=== PATIENT | female | born 1945 | race African-American/Black ===

== ENCOUNTER → 2016-11-06 | Outpatient (CLI) | payer OTHER ==
[2016-07-16 10:30] VITALS: BP 125/61
[~2016-11-06] MED LIST: ACET325T9 PO; CYAN10005 PO; CYCL10TA2 PO; FLUT9.9S NS; FOLI1TAB16 PO; FURO20TA3 PO; LISI1TAB3 PO; NAPR250T2 PO; POTA10CA PO
--- NOTE | 2016-11-06 15:02 | RAD ---
Bilateral lower extremity venous ultrasound, 11/06/2016: History: Bilateral leg pain and swelling Duplex evaluation of the deep veins in the lower extremities was performed including grayscale, color-flow and spectral Doppler analysis. The study was compromised by the large size of the patient's legs. The femoral and popliteal veins demonstrate normal compressibility and normal responses to distal augmentation maneuvers. Color imaging of those vessels shows no evidence of intraluminal clot. Evaluation of the calves veins was limited. No calf vein DVT was identified. IMPRESSION: Limited exam demonstrating no evidence of deep vein thrombosis in either lower extremity.
== END | disposition home or self-care (01) ==
LOC: US 13:29
PROVIDERS: ATTEND Internal Medicine
DX: M79.89 Other specified soft tissue disorders (principal); R68.89 Other general symptoms and signs
CPT/HCPCS: 93970

== ENCOUNTER → 2017-05-01 | Outpatient (CLI) | payer OTHER ==
[2016-07-16 10:30] VITALS: BP 125/61
[~2017-05-01] MED LIST changes: -POTA10CA PO; +POTASSIUM CHLO10 MEQ PO
--- NOTE | 2017-05-01 09:09 | RAD ---
DATE: 05/01/2017 EXAM: DIGITAL SCREEN BILAT W/CAD HISTORY: Routine screening COMPARISON: 03/06/2016 This study was interpreted with the benefit of Computerized Aided Detection (CAD). The breast parenchyma is primarily fatty replaced. Breast parenchyma level density A. FINDINGS: No new or enlarging breast densities are seen. Several benign type calcifications are again noted. No suspicious microcalcifications have developed. IMPRESSION: Stable mammograms without evidence of malignancy. BI-RADS CATEGORY: 2 BENIGN FINDING(S) RECOMMENDED FOLLOW-UP: 12M 12 MONTH FOLLOW-UP PQRS compliance statement: Patient information was entered into a reminder system with a target due date for the next mammogram. Mammography is a sensitive method for finding small breast cancers, but it does not detect them all and is not a substitute for careful clinical examination. A negative mammogram does not negate a clinically suspicious finding and should not result in delay in biopsying a clinically suspicious abnormality. "Our facility is accredited by the [employer] Mammography [employer]."
== END | disposition home or self-care (01) ==
LOC: MAMMO 08:39
PROVIDERS: ATTEND Internal Medicine
DX: Z12.31 Encounter for screening mammogram for malignant neoplasm of breast (principal)
CPT/HCPCS: G0202; 77067

== ENCOUNTER → 2017-12-15 | Outpatient (CLI) | payer OTHER | END | disposition home or self-care (01) | LOC: KCIC DEXA 08:35 | DX: Z13.820 Encounter for screening for osteoporosis (principal); M85.80 Other specified disorders of bone density and structure, unspecified site; Z78.0 Asymptomatic menopausal state | CPT/HCPCS: 77080 ==

== ENCOUNTER 2018-03-06 08:23 | Emergency (ER) | payer OTHER ==
[2018-03-06 09:51] LABS: ADD MAN DIFF? NO
[2018-03-06 09:53] LABS: BASO % 0 % (0-3); EOS # 0.1 x10^3/uL (0.0-0.7); EOS % 3 % (0-3); HEMATOCRIT 29.5 % (36.0-47.0); LYMPH # 1.1 x10^3/uL (1.0-4.8); LYMPH % 19 % (24-48); MEAN CORPUSCULAR HEMOGLOBIN 30 pg (25-35); MEAN CORPUSCULAR HGB CONC 34 g/dL (31-37); MEAN CORPUSCULAR VOLUME 89 fL (79-100); MONO # 0.6 x10^3/uL (0.0-1.1); MONO % 11 % (0-9); NEUT % 68 % (31-73); PLATELET COUNT 203 x10^3/uL (140-400); RED CELL DISTRIBUTION WIDTH 14.6 % (11.5-14.5); WHITE BLOOD COUNT 5.9 x10^3/uL (4.0-11.0)
[2018-03-06 10:00] LABS: ANION GAP 6 (6-14); BLOOD UREA NITROGEN 33 mg/dL (7-20); BUN/CREATININE RATIO 24 (6-20); CALCIUM 9.4 mg/dL (8.5-10.1); CARBON DIOXIDE 26 mmol/L (21-32); CHLORIDE 108 mmol/L (98-107); CREATININE 1.4 mg/dL (0.6-1.0); GFR 44.6; GLUCOSE 98 mg/dL (70-99); POTASSIUM 4.7 mmol/L (3.5-5.1); SODIUM 140 mmol/L (136-145)
[2018-03-06 10:06] LABS: ALBUMIN 3.2 g/dL (3.4-5.0); ALBUMIN/GLOBULIN RATIO 0.8 (1.0-1.7); ALK PHOS 88 U/L (46-116); ALT (SGPT) 24 U/L (14-59); AST (SGOT) 25 U/L (15-37); TOTAL BILIRUBIN 0.4 mg/dL (0.2-1.0); TOTAL PROTEIN 7.4 g/dL (6.4-8.2)
[2018-03-06 10:12] LABS: NT-PRO BNP 53 pg/mL (0-124)
[2018-03-06 11:57] LABS: BILIRUBIN,URINE NEGATIVE (NEG); CLARITY,URINE CLEAR; COLOR,URINE YELLOW; GLUCOSE,URINE NEGATIVE (NEG); NITRITE,URINE NEGATIVE (NEG); PROTEIN,URINE NEGATIVE (NEG-TRACE); UROBILINOGEN,URINE 0.2 mg/dL (0.2 mg/dL)
[2018-03-06 12:12] LABS: BACTERIA,URINE FEW /HPF (0-FEW); HYALINE CASTS, URINE MODERATE /HPF; RBC,URINE 0 /HPF (0-2); SQUAMOUS EPITHELIAL CELL,UR MOD /LPF; WBC,URINE 0 /HPF (0-4)
== END 2018-03-06 12:52 | disposition home or self-care (01) ==
LOC: ER 12:52
DX: M71.22 Synovial cyst of popliteal space [Baker], left knee (principal); R60.0 Localized edema; I62.9 Nontraumatic intracranial hemorrhage, unspecified; E66.9 Obesity, unspecified; I10 Essential (primary) hypertension; Z90.710 Acquired absence of both cervix and uterus; Z88.0 Allergy status to penicillin; Z68.42 Body mass index [BMI] 45.0-49.9, adult
CPT/HCPCS: 36415; 71045; 80053; 81001; 83880; 85025; 93005; 93970; 99285-25

== ENCOUNTER → 2018-06-02 | Day surgery (SDC) | payer OTHER ==
[~2018-06-02] MED LIST changes: +IV RINGERS,LACTATED 1000ML 1,000 ML IV SCH; +LIDOCAINE 1% PF 2 ML VIAL. ID PRN; +LIDOCAINE 2% PF Vial for OR 5 ML VIAL. ONE; +MORPHINE SULFATE 2 MG/ML VIAL. IV PRN; -NAPR250T2 PO; +NAPR250T6 PO; +ONDANSETRON PF 4 MG/2 ML VIAL. IV PRN; +POTA10TA12 PO; -POTASSIUM CHLO10 MEQ PO; +PROCHLORPERAZINE 10 MG/2 ML VIAL. IV PRN; +PROPOFOL 40 ML IV ONE; +fentaNYL PF VIAL 100 MCG/2 ML VIAL IV PRN
--- NOTE | 2018-06-02 12:58 | PDOC1 ---
History and Physical Date of Admission Date of Admission DATE: 06/02/18 TIME: 12:53 Source Source: Chart review, Patient History of Present Illness History of Present Illness 73 y/o female with MARILU. No symptoms or overt bleeding. Last colon 2009 w/ hyperplastic polyp. EGD 2011 as well with negative biopsies for H.pylori though had . Past Medical History Cardiovascular: HTN Heme/Onc: B12 deficiency Musculoskeletal: Osteoarthritis Past Surgical History Past Surgical History: Hysterectomy Family History Family History: Cancer Social History Smoke: No ALCOHOL: none Drugs: None Current Medications Current Medications Current Medications Ondansetron HCl (Zofran) 4 mg PRN Q6HRS PRN IV NAUSEA/VOMITING; Start 06/02/18 at 07:00; Stop 06/03/18 at 06:59 Fentanyl Citrate (Fentanyl 2ml Vial) 25 mcg PRN Q5MIN PRN IV MILD PAIN; Start 06/02/18 at 07:00; Stop 06/03/18 at 06:59 Fentanyl Citrate (Fentanyl 2ml Vial) 50 mcg PRN Q5MIN PRN IV MODERATE TO SEVERE PAIN; Start 06/02/18 at 07:00; Stop 06/03/18 at 06:59 Morphine Sulfate (Morphine Sulfate) 1 mg PRN Q10MIN PRN IV SEVERE PAIN; Start 06/02/18 at 07:00; Stop 06/03/18 at 06:59 Ringer's Solution 1,000 ml @ 30 mls/hr Q24H IV Last administered on 06/02/18at 07:00; Start 06/02/18 at 07:00; Stop 06/02/18 at 18:59 Lidocaine HCl (Xylocaine-Mpf 1% Vial) 2 ml PRN 1X PRN ID IV START; Start at 07:00; Stop 06/03/18 at 06:59 Prochlorperazine Edisylate (Compazine) 5 mg PACU PRN PRN IV NAUSEA, MRX1; Start 06/02/18 at 07:00; Stop 06/03/18 at 06:59 Propofol 40 ml @ As Directed STK-MED ONCE IV ; Start 06/02/18 at 12:40; Stop at 12:41; Status DC Lidocaine HCl (Lidocaine Pf 2% Vial) 5 ml STK-MED ONCE .ROUTE ; Start 06/02/18 at 12:40; Stop 06/02/18 at 12:41; Status DC Active Scripts Active Naproxen 250 Mg Tablet 250 Mg PO BID PRN Flonase Allergy Relief (Fluticasone Propionate) 9.9 Ml Center Line.susp 2 Sprays NS DAILY Cyclobenzaprine Hcl 10 Mg Tablet 10 Mg PO TID PRN Reported Tylenol (Acetaminophen) 325 Mg Tablet 1 Tab PO PRN Q4HRS Folic Acid 1 Mg Tablet 1 Tab PO DAILY Vitamin B-12 (Cyanocobalamin (Vitamin B-12)) 1,000 Mcg Tablet 1 Tab PO DAILY Potassium Chloride 10 Meq Capsule.er 1 Cap PO DAILY Furosemide 20 Mg Tablet 1 Tab PO DAILY Lisinopril-Hctz 10-12.5 Mg Tab (Lisinopril/Hydrochlorothiazide) 1 Each Tablet 1 Tab PO DAILY Allergies Allergies: Coded Allergies: Penicillins (Verified Allergy, Intermediate, Itching, 06/02/18) ROS Review of System Otherwise negative. Physical Exam General: Alert, Oriented X3, Cooperative, No acute distress Lungs: Clear to auscultation Heart: S1S2, RRR, no gallops, no murmurs Abdomen: Normal bowel sounds, Soft, No tenderness, No hepatosplenomegaly, No masses Rectal Exam: deferred (to procedure) Skin: No significant lesion Neuro: Normal speech, Strength at 5/5 X4 ext, Normal tone, Sensation intact, Cranial nerves 3-12 NL, Reflexes 2+ Psych/Mental Status: Mental status NL, Mood NL Vitals Vitals Vital Signs Date Time Temp Pulse Resp B/P (MAP) Pulse Ox O2 Delivery O2 Flow Rate FiO2 06/02/18 12:36 98.8 85 22 98 98.8 VTE Prophylaxis Ordered VTE Prophylaxis Devices: No VTE Pharmacological Prophylaxi: No Assessment/Plan Assessment/Plan IMP: Iron deficiency anemia. PLAN: EGD/colonoscopy. SUMAYA BELL MD Jun 02, 2018 12:58
--- NOTE | 2018-06-02 13:27 | PDOC4 ---
PROCEDURE Procedure EGD/colonoscopy Indications: MARILU Meds: per anesthesia Findings: E--Irregular z-line at 40cm. G--Scar and pancreatic rest, pre-pyloric area. Prior biopsies negative for H.pylori, so not repeated. D--Normal to second portion. Biopsies taken. JERZY--Normal --'Scope advanced to cecum. Prep good. Mucosa normal. 3mm polyp near appendiceal orifice, biopsied off. Small internal hemorrhoids. Occasional diverticulum, sigmoid. Otherwise normal. Shital.well. IMP: Gastric scar and pancreatic rest. Diverticulosis Small polyp Hemorrhoids. No overt cause for the anemia noted. REC: Await biopsies. F/u my office 2 weeks. SUMAYA BELL MD Jun 02, 2018 13:27
[2018-06-02 13:55] VITALS: BP 137/65
--- NOTE | 2018-06-04 10:53 | PATHOLOGY ---
[facility] Accession Number: [id number] . 01 Material submitted: . PART A: DUODENUM BIOPSY PART B: CECUM POLYP . 01 Clinical history: . Anemia . 02 Diagnosis: A. Duodenal biopsies: - No significant pathologic abnormalities. . B. Colon biopsies, cecal polyp: - Hyperplastic polyp showing mild acute and chronic inflammation and fibrosis of lamina propria, and presence of few mucosal-associated lymphoid aggregates. LBQ/06/03/2018 . 02 Comment: Sections of the duodenal biopsies, where best oriented, show no sprue-like changes or significant inflammatory changes. Sections of the cecal biopsies reveal a hyperplastic polyp showing mild acute and chronic inflammation and fibrosis of lamina propria. There are also a few mucosal-associated lymphoid aggregates. There are no adenomatous changes or evidence of malignancy. (JPM/db; 06/03/18) . 02 Electronically signed: . Harry Sharma MD, Pathologist NPI- [id number] . 01 Gross description: . A. Received in formalin labeled "Aury Stallworth, duodenum biopsy," are 3 segments of phillips soft tissue measuring 1.2 x 0.6 x 0.3 cm in aggregate dimensions and ranging from 0.4 to 0.5 cm in maximum dimension. The specimen is submitted entirely in cassette A1. . B. Received in formalin labeled "Basim, Aury, cecum polyp," is a single segment of phillips soft tissue measuring 0.5 cm in maximum dimension. The specimen is entirely submitted in cassette B1. (TSD; 06/02/2018) TOB/TOB . 02 Microscopic: . . . 02 Pathologist provided ICD-10: K63.5, K52.9 . 02 CPT . 174261, [id number] Performed at: [address] [place] [address] [address], [place], [place] [id number] MD Kwadwo Smith MD Phone: [phone] Performed at: [address] [id number] MD Harry Sharma MD Phone: [phone]
== END | disposition home or self-care (01) ==
LOC: ENDOS 12:20
PROVIDERS: ATTEND Internal Medicine Gastroenterology
DX: K63.5 Polyp of colon (principal); K57.30 Diverticulosis of large intestine without perforation or abscess without bleeding; K64.0 First degree hemorrhoids; K31.89 Other diseases of stomach and duodenum; K22.8 Other specified diseases of esophagus; D50.9 Iron deficiency anemia, unspecified; I10 Essential (primary) hypertension; E66.9 Obesity, unspecified; K21.9 Gastro-esophageal reflux disease without esophagitis; E53.8 Deficiency of other specified B group vitamins; M19.90 Unspecified osteoarthritis, unspecified site; Z90.710 Acquired absence of both cervix and uterus; Z79.899 Other long term (current) drug therapy; Z88.0 Allergy status to penicillin; Z86.010 Personal history of colon polyps; Z90.79 Acquired absence of other genital organ(s); Z90.721 Acquired absence of ovaries, unilateral
CPT/HCPCS: 43239; 45380; J2001; J2704; 88305

== ENCOUNTER → 2018-07-07 | Outpatient (CLI) | payer OTHER ==
[2018-06-02 13:55] VITALS: BP 137/65
[~2018-07-07] MED LIST changes: -IV RINGERS,LACTATED 1000ML 1,000 ML IV SCH; -LIDOCAINE 1% PF 2 ML VIAL. ID PRN; -LIDOCAINE 2% PF Vial for OR 5 ML VIAL. ONE; -MORPHINE SULFATE 2 MG/ML VIAL. IV PRN; -ONDANSETRON PF 4 MG/2 ML VIAL. IV PRN; -PROCHLORPERAZINE 10 MG/2 ML VIAL. IV PRN; -PROPOFOL 40 ML IV ONE; -fentaNYL PF VIAL 100 MCG/2 ML VIAL IV PRN
--- NOTE | 2018-07-07 09:21 | RAD ---
EXAM: 3 views left knee DATE: 07/07/2018 12:00 AM INDICATION: LEFT KNEE PAIN X 1 MONTH AFTER KNEE POPPED COMPARISON: 07/07/2018 FINDINGS: Severe medial compartment joint space effacement with tricompartmental osteophytes. No knee joint effusion. Patellar enthesopathy. No evidence of acute fracture or dislocation. No suspicious lytic or blastic lesion is identified. IMPRESSION: 1. Severe left knee joint osteoarthritis with medial compartment joint space effacement. Electronically signed by: James Martínez MD (07/07/2018 9:18 AM) [id number]
--- NOTE | 2018-07-07 15:04 | RAD ---
DATE: July 07, 2018 EXAM: MAMMO RONNY SCREENING BILATERAL HISTORY: Screening study. COMPARISON: 2015 and 2017 This study was interpreted with the benefit of Computerized Aided Detection (CAD). FINDINGS: Breast Density: FATTY The breast parenchyma is primarily fatty replaced. Breast parenchyma level density A.. There are no dominant suspicious masses, suspicious microcalcifications or evidence of architectural distortion. IMPRESSION: No mammographic indicators for malignancy. BI-RADS CATEGORY: 1 NEGATIVE RECOMMENDED FOLLOW-UP: 12M 12 MONTH FOLLOW-UP PQRS compliance statement: Patient information was entered into a reminder system with a target due date July 08, 2019 for the next mammogram. Mammography is a sensitive method for finding small breast cancers, but it does not detect them all and is not a substitute for careful clinical examination. A negative mammogram does not negate a clinically suspicious finding and should not result in delay in biopsying a clinically suspicious abnormality. "Our facility is accredited by the [employer] Mammography Program." The patient's breast density may affect the ability of mammography to detect breast cancer. There are 4 categories of breast density, A, B, C and D. Breast density A means that most of the breast tissue is replaced with adipose tissue and therefore is not dense. Breast density B means that the breast tissue is mildly dense and scattered. Breast density C means that the breast tissue is heterogeneously dense. Breast density D means that the breast tissue is very dense. Breast densities especially C and D may decrease the sensitivity of mammography to detect breast cancer. Therefore, the patient may benefit from 3-D breast mammography (3D breast tomography) as a part of their screening mammogram. Insurance may or may not pay for this additional imaging. The patient's breast density based on today's mammogram is category A.
== END | disposition home or self-care (01) ==
LOC: MAMMO 08:25
DX: Z12.31 Encounter for screening mammogram for malignant neoplasm of breast (principal); M17.12 Unilateral primary osteoarthritis, left knee; M25.762 Osteophyte, left knee; I10 Essential (primary) hypertension; K21.9 Gastro-esophageal reflux disease without esophagitis; Z90.721 Acquired absence of ovaries, unilateral; Z90.710 Acquired absence of both cervix and uterus; Z86.2 Personal history of diseases of the blood and blood-forming organs and certain disorders involving the immune mechanism; Z86.010 Personal history of colon polyps; Z88.0 Allergy status to penicillin; Z79.899 Other long term (current) drug therapy
CPT/HCPCS: 73562; 77063; 77067

== ENCOUNTER → 2019-07-28 | Outpatient (CLI) | payer OTHER ==
[2018-06-02 13:55] VITALS: BP 137/65
[~2019-07-28] MED LIST changes: +CYAN-25 PO; -CYAN10005 PO; +LISI1TAB23 PO; -LISI1TAB3 PO
--- NOTE | 2019-07-28 13:45 | RAD ---
DATE: 07/28/2019 EXAM: MAMMO RONNY SCREENING BILATERAL HISTORY: Asymptomatic screening mammogram COMPARISON: 07/07/2018, 05/01/2017, 03/06/2016 This study was interpreted with the benefit of Computerized Aided Detection (CAD). Breast Density: FATTY The breast parenchyma is primarily fatty replaced. Breast parenchyma level density A. FINDINGS: Bilateral CC and MLO views of the breasts were performed. Bilateral breast tomosynthesis was performed in CC and MLO projections. Right breast: There is a 5-6 mm focal asymmetry in the upper outer right breast at middle depth, approximately 8 cm from the nipple which may be on the most remote examination, however new from prior examinations. Recommend further evaluation with spot compression CC and MLO view as well as possible ultrasound. Left breast: There are no suspicious microcalcifications, masses or areas of architectural distortion. Left breast findings are stable from prior mammogram. IMPRESSION: 1. Incomplete right mammogram. Additional views are recommended. 2. Negative left mammogram.. BI-RADS CATEGORY: 0 INCOMPLETE: NEEDS ADDITIONAL IMAGING EVALUATION AND/OR PRIOR MAMMOGRAMS FOR COMPARISON. RECOMMENDED FOLLOW-UP: ADD ADDITIONAL IMAGING PQRS compliance statement: Mammography is a sensitive method for finding small breast cancers, but it does not detect them all and is not a substitute for careful clinical examination. A negative mammogram does not negate a clinically suspicious finding and should not result in delay in biopsying a clinically suspicious abnormality. "Our facility is accredited by the [employer] Mammography Program."
== END | disposition home or self-care (01) ==
LOC: MAMMO 08:23
DX: Z12.31 Encounter for screening mammogram for malignant neoplasm of breast (principal); N64.89 Other specified disorders of breast
CPT/HCPCS: 77063; 77067

== ENCOUNTER → 2019-08-12 | Outpatient (CLI) | payer OTHER ==
[2018-06-02 13:55] VITALS: BP 137/65
--- NOTE | 2019-08-12 12:26 | RAD ---
DATE: 08/12/2019. EXAM: DIGITAL DIAGNOSTIC RT, BREAST RIGHT. HISTORY: Routine mammographic screening. COMPARISON: 07/28/2019. Multiple studies dating back through 03/05/2013. This study was interpreted with the benefit of Computerized Aided Detection (CAD). FINDINGS: Breast Density: SCATTERED The breast parenchyma shows scattered fibroglandular densities. Breast parenchyma level B.. The suggested spiculated focus laterally on the right CC view resolves to its former appearance on spot compression. On today's sonography, a small circumscribed hypoechoic nodule measuring 4 x 2 mm may represent a small complicated cyst or fibroadenoma at this location. Just posterior to this, there is a new cluster of irregular calcifications. There is no clear correlate for this on sonography. The density of concern and the nuclear stress calcifications at the right 9:00 position were discussed with the patient. She prefers six-month follow-up surveillance to further clarify rather than stereotactic biopsy at this time. BI-RADS CATEGORY: 4 SUSPICIOUS ABNORMALITY-BIOPSY SHOULD BE CONSIDERED. RECOMMENDED FOLLOW-UP: 6M 6 MONTH FOLLOW-UP. 1. Six-month follow-up right diagnostic mammography is recommended to confirm stability of the right upper-outer density, which appeared to resolve to its former appearance, and a new cluster of indeterminate calcifications at the 9:00 position. Stereotactic is recommended if these calcifications do not demonstrate benign evolution. PQRS compliance statement: Patient information was entered into a reminder system with a target due date 02/11/2020 for the next mammogram. Mammography is a sensitive method for finding small breast cancers, but it does not detect them all and is not a substitute for careful clinical examination. A negative mammogram does not negate a clinically suspicious finding and should not result in delay in biopsying a clinically suspicious abnormality. "Our facility is accredited by the [employer] Mammography Program."
== END | disposition home or self-care (01) ==
LOC: MAMMO 09:32
PROVIDERS: ATTEND Family Medicine
DX: N63.11 Unspecified lump in the right breast, upper outer quadrant (principal); R92.8 Other abnormal and inconclusive findings on diagnostic imaging of breast
CPT/HCPCS: 76641; 77065

== ENCOUNTER 2019-11-13 23:30 | Emergency (ER) | payer MEDICARE, OTHER ==
[~2019-11-13] VITALS: Ht 167.6 cm; Wt 107.0 kg
[2019-11-14] MEDS ORDERED: HYDROcodone/APAP 7.5/325MG 1 TAB TABLET PO ONE
--- NOTE | 2019-11-14 00:05 | PHYS DOC ---
Past Medical History Past Medical History: Hypertension, Other Additional Past Medical Histor: obesity Past Surgical History: Hysterectomy Alcohol Use: None Drug Use: None Adult General Chief Complaint Chief Complaint: MECHANICAL FALL HPI HPI Patient is a 74 year old female who presents with complaint of left hip pain after falling a few days ago. Patient states that she has a large Degroot cyst in her right knee and that makes it difficult for her to walk. Patient rates pain an 8 out of 10. She states that she has been able to bear weight but it's very painful. She denies any other injuries.[] Review of Systems Review of Systems Constitutional: Denies fever or chills [] Respiratory: Denies cough or shortness of breath [] Cardiovascular: No additional information not addressed in HPI [] GI: Denies abdominal pain, nausea, vomiting or diarrhea [] Musculoskeletal: Positive left hip and knee pain [] Integument: Denies rash or skin lesions [] Current Medications Current Medications Current Medications Medications (Trade) Dose Ordered Sig/Lisha Start Time Stop Time Status Last Admin Dose Admin Acetaminophen/ Hydrocodone Bitart (Lortab 7.5/325) 1 tab 1X ONCE 11/14/19 00:00 11/14/19 00:01 DC 11/14/19 00:12 1 TAB Allergies Allergies Allergies Coded Allergies Type Severity Reaction Last Updated Verified Penicillins Allergy Intermediate Itching 06/02/18 Yes Physical Exam Physical Exam Constitutional: Well developed, well nourished, no acute distress, non-toxic appearance. [] Cardiovascular: Regular rate and rhythm[] Lungs & Thorax: Bilateral breath sounds clear to auscultation [] Skin: Warm, dry, no erythema, no rash. [] Extremities: Left hip demonstrates some pain with range of motion. Large swelling noted in the popliteal space consistent with reported large Degroot cyst. [] Neurologic: Alert and oriented X 3, no focal deficits noted. [] Current Patient Data Vital Signs Vital Signs Date Time Temp Pulse Resp B/P (MAP) Pulse Ox O2 Delivery O2 Flow Rate FiO2 11/14/19 00:12 16 99 Room Air 11/14/19 00:01 97.6 68 142/65 (90) 97.6 EKG EKG [] Radiology/Procedures Radiology/Procedures [] Impressions: X-ray of right hip demonstrates no acute process Course & Med Decision Making Course & Med Decision Making Pertinent Labs and Imaging studies reviewed. (See chart for details) [] Dragon Disclaimer Dragon Disclaimer This electronic medical record was generated, in whole or in part, using a voice recognition dictation system. Departure Departure Impression: Primary Impression: Contusion, hip Disposition: HOME, SELF-CARE Condition: STABLE Referrals: JOSE ARMANDO BURTON D.O. (PCP) Patient Instructions: Contusion Scripts Hydrocodone/Apap 5-325 (NORCO 5-325 TABLET) 1 Each Tablet 1-2 EACH PO PRN Q6HRS PRN for PAIN, #15 as needed for pain Prov: FELICITA DEGROOT Jr. DO 11/14/19 Problem Qualifiers Primary Impression: Contusion, hip Encounter type: initial encounter Laterality: unspecified laterality Qualified Codes: S70.00XA - Contusion of unspecified hip, initial encounter FELICITA DEGROOT Jr. DO Nov 14, 2019 00:05
[2019-11-14] MEDS ORDERED: HYDR-3164 PO (01:31)
[2019-11-14 01:44] VITALS: BP 135/63
--- NOTE | 2019-11-14 02:55 | RAD ---
EXAM: AP pelvis, AP and lateral views left hip DATE: 11/14/2019 12:43 AM INDICATION: Left hip pain, fall, 1 week ago COMPARISON: No Prior FINDINGS: Hip joint osteoarthritis. Lower lumbar spine degenerative changes are seen. Iliac crest enthesopathy. No pubic symphysis or SI joint diastases. No acute fracture or dislocation IMPRESSION: No acute fracture or dislocation. Hip and lower lumbar spine degenerative changes. Electronically signed by: James Martínez MD (11/14/2019 2:51 AM) [facility]
== END 2019-11-14 01:45 | disposition home or self-care (01) ==
LOC: ER 23:30
DX: S70.00XA Contusion of unspecified hip, initial encounter (principal); M71.21 Synovial cyst of popliteal space [Baker], right knee; M25.561 Pain in right knee; R60.9 Edema, unspecified; I10 Essential (primary) hypertension; E66.9 Obesity, unspecified; Z68.38 Body mass index [BMI] 38.0-38.9, adult; Z90.710 Acquired absence of both cervix and uterus; W19.XXXA Unspecified fall, initial encounter; Y93.89 Activity, other specified; Y92.89 Other specified places as the place of occurrence of the external cause; Y99.8 Other external cause status
CPT/HCPCS: 73502; 99284

== ENCOUNTER → 2019-11-29 | Outpatient (CLI) | payer OTHER ==
[2019-11-23 17:41] VITALS: BP 136/61
[~2019-11-29] MED LIST changes: +ACET500T68 PO; +AMLO5TAB10 PO; +BISA5TAB PO; +CHOL200078 PO; +HYDR-3164 PO
[2019-11-29 23:08] LABS: HEMOGLOBIN A1C 5.6 % (4.8-5.6)
== END | disposition home or self-care (01) ==
LOC: SURGPAT 13:09
PROVIDERS: ATTEND Orthopaedic Surgery
DX: Z01.812 Encounter for preprocedural laboratory examination (principal); M17.12 Unilateral primary osteoarthritis, left knee; Z88.0 Allergy status to penicillin
CPT/HCPCS: 36415; 82306; 83036; 85651; 87641

== ENCOUNTER → 2020-11-02 | Outpatient (CLI) | payer OTHER ==
[2019-11-23 17:41] VITALS: BP 136/61
[~2020-11-02] MED LIST changes: +AMLO-186 PO; -AMLO5TAB10 PO
--- NOTE | 2020-11-02 15:23 | RAD ---
Examination: Digital bilateral diagnostic mammogram. INDICATION: Patient is due for screening. She presents also overdue for short-term follow-up of proba robin benign right breast findings. She had been recommended for biopsy of right breast calcifications but declined biopsy. COMPARISON: 07/28/2019 bilateral mammogram and right breast ultrasound of 08/12/2019. TECHNIQUE: CC and MLO views of both breasts were obtained with 2-D and 3-D technique and reviewed with computer- aided detection. FINDINGS: Scattered fibroglandular densities. Clustered microcalcifications in the right breast initially recommended for biopsy have in the interv al grown coarser in a tight clustered in a pattern suggesting hyalinization of a fibroadenoma. No radha picious mammographic findings are identified in either breast on this exam. IMPRESSION: Benign findings on bilateral screening mammogram. No evidence of malignancy. Recommend return to routine screening next due in one year. BI-RADS Category 2 Benign findings Patient entered into a reminder system with targeted due date for next mammogram. Electronically signed by: Niraj Bowie MD (11/02/2020 3:21 PM) [id number]
== END ==
LOC: MAMMO 13:44
PROVIDERS: ATTEND Nurse Practitioner Family
DX: R92.2 Inconclusive mammogram (principal)
CPT/HCPCS: 77066; G0279; 77062

== ENCOUNTER → 2021-12-03 | Outpatient (CLI) | payer MEDICARE ==
[2019-11-23 17:41] VITALS: BP 136/61
[~2021-12-03] MED LIST changes: +CYCL10TA19 PO; -CYCL10TA2 PO; -LISI1TAB23 PO; +LISI1TAB35 PO; +NAPR-699 PO; -NAPR250T6 PO
--- NOTE | 2021-12-03 08:43 | RAD ---
EXAM: Left lower extremity sonogram. HISTORY: Synovial cyst in the popliteal space. TECHNIQUE: Sonographic imaging of the left lower extremity was performed. FINDINGS: There is soft tissue isoechoic to fat protruding from the posterior left thigh measuring ap proximately 19 cm in maximum dimension. There is no drainable fluid collection. There is no blood sloane w within this location. IMPRESSION: Large soft tissue lesion isoechoic to fat protruding from the posterior left side measuri ng approximately 19 cm, possibly due to a lipoma or encapsulated fat. Correlate with physical exam fi ndings. There is no convincing synovial cyst within the popliteal space. Electronically signed by: Macrina Randolph MD (12/03/2021 8:41 AM) [id number]
== END ==
LOC: US 08:00
PROVIDERS: ATTEND Family Medicine
DX: M71.22 Synovial cyst of popliteal space [Baker], left knee (principal)
CPT/HCPCS: 76882

== ENCOUNTER 2022-03-11 13:42 | Emergency (ER) | payer MEDICARE ==
[~2022-03-11] VITALS: Ht 167.6 cm; Wt 115.0 kg
[2022-03-11 13:56] VITALS: BP 134/66
--- NOTE | 2022-03-11 15:10 | RAD ---
CT HEAD AND C-SPINE WO History: Reason: Ground-level fall, struck forehead / Spl. Instructions: / History: Comparison: None. Technique: Noncontrast CT imaging was performed of the head and cervical spine. Coronal and sagittal reconstructions were performed. Exposure: One or more of the following individualized dose reduction techniques were utilized for thi s examination: 1. Automated exposure control 2. Adjustment of the mA and/or kV according to patient size 3. Use of iterative reconstruction technique. Findings: Head CT: No intracranial hemorrhage. No mass effect. No hydrocephalus. Large left anterior scalp hematoma measures 4.6 x 1.2 cm. Mild foci of decreased attenuation within the hemispheric white matter, most often due to chronic balaji rovascular ischemia. Partially sella, often incidental. Imaged orbits are unremarkable. Imaged paranasal sinuses and mastoid air cells are clear. No acute ca lvarial fracture. Cervical spine CT: Anterior stabilization and interbody fusion C3-C4. Normal vertebral body height. No acute fracture. Moderate degenerative disc changes most prominent C4-C5, C5-C6 and C6-C7. Moderate canal narrowing C2 -C3. Additional mild canal narrowing. Multilevel neuroforaminal narrowing. Left posterior thyroid partially calcified nodule measures 1.5 x 1.2 cm. Impression: Head CT: 1. No acute intracranial abnormality. 2. Large left anterior scalp hematoma. Cervical spine CT: 1. No acute fracture or subluxation of the cervical spine. 2. Moderate cervical spondylosis with canal and neuroforaminal narrowing. MRI can further assess if clinically indicated. 3. Left thyroid nodule. Ultrasound can further evaluate if not already performed. Electronically signed by: Ky Nair DO (03/11/2022 3:08 PM) [id number]
--- NOTE | 2022-03-11 15:16 | RAD ---
XR SHOULDER_LEFT 2+ VIEWS History: Reason: Ground-level fall, left shoulder pain / Spl. Instructions: / History: Technique: 3 views left shoulder Comparison: None. Findings: Moderate left acromioclavicular DJD. No dislocation. No acute fracture. Mild glenohumeral DJD. Impression: 1. No acute osseous abnormality. Electronically signed by: Ky Nair DO (03/11/2022 3:14 PM) [id number]
[2022-03-11] MEDS ORDERED: BACITRACIN TOPICAL OINT PACKET. TP ONE (16:00)
[2022-03-11 16:02] LABS: HYALINE CASTS, URINE MANY /HPF
[2022-03-11 16:03] LABS: BACTERIA,URINE MANY /HPF (0-FEW); RBC,URINE OCC /HPF (0-2); WBC,URINE >40 /HPF (0-4)
[2022-03-11] MEDS ORDERED: ACETAMINOPHEN 500 MG TABLET PO ONE (17:00)
--- NOTE | 2022-03-11 17:06 | PHYS DOC ---
Past Medical History Past Medical History: Hypertension, Other Additional Past Medical Histor: obesity Past Surgical History: Hysterectomy Additional Past Surgical Histo: BARIATRIC SURGERY Smoking Status: Never Smoker Alcohol Use: None Drug Use: None General Adult EDM: Chief Complaint: MECHANICAL FALL HPI: HPI: Patient is a 77-year-old female with a history of bilateral lower extremity lymphedema presents to the emergency department with complaints of forehead pain and left shoulder pain after she stumbled and fell from ground-level just prior to arrival to the emergency department. Patient reports she hit her head on her walker and onto the concrete outside. Patient denies loss of consciousness, reports her son was with her and witnessed the event. Patient denies neck pain. Denies pain in other parts of her body. Patient did not take medications for pain or discomfort prior to arrival to the emergency department, has not tried nonpharmacological pain relief methods. Patient reports her last tetanus immunization was less than 5 years ago. Patient denies chest pains, shortness of breath, denies dizziness, denies syncopal or near syncopal episodes. Patient denies visual disturbances. Patient denies other physical complaints or physical concerns. Review of Systems: Review of Systems: 14 body systems of review of systems have been reviewed. See HPI for pertinent positives and negative responses, otherwise all other systems are negative, nonpertinent or noncontributory. Constitutional: Negative except as outlined in HPI above. Skin: Negative except as outlined in HPI above. Eyes: Negative except as outlined in HPI above. HENT: Negative except as outlined in HPI above. Respiratory: Negative except as outlined in HPI above. Cardiovascular: Negative except as outlined in HPI above. GI: Negative except as outlined in HPI above. : Negative except as outlined in HPI above. Musculoskeletal: Negative except as outlined in HPI above. Integument: Negative except as outlined in HPI above. Neurologic: Negative except as outlined in HPI above. Endocrine: Negative except as outlined in HPI above. Lymphatic: Negative except as outlined in HPI above. Psychiatric: Negative except as outlined in HPI above. Heart Score: C/O Chest Pain: No Risk Factors: Risk Factors: DM, Current or recent (<one month) smoker, HTN, HLP, family history of CAD, obesity. Risk Scores: Score 0 - 3: 2.5% MACE over next 6 weeks - Discharge Home Score 4 - 6: 20.3% MACE over next 6 weeks - Admit for Clinical Observation Score 7 - 10: 72.7% MACE over next 6 weeks - Early Invasive Strategies Current Medications: Current Medications Medications (Trade) Dose Ordered Sig/Lisha Start Time Stop Time Status Last Admin Dose Admin Bacitracin (Bacitracin Zinc Oint Pkt) 1 pkt 1X ONCE 03/11/22 16:00 03/11/22 16:01 DC Allergies: Allergies: Allergies Coded Allergies Type Severity Reaction Last Updated Verified Penicillins Allergy Intermediate Itching 06/02/18 Yes Physical Exam: PE: Constitutional: Well developed, well nourished, no acute distress, non-toxic appearance. 77-year-old female in no apparent distress. HENT: Normocephalic, patient has contusion with superficial abrasion just over the left brow on forehead. Patient has abrasion to tip of nose, and upper lip. There is no malocclusion, normal dentition, no loose teeth, there is no battles sign, no raccoon eyes, bilateral TMs intact and within normal limits, no drainage from external auditory canals. Patent nasal turbinates moist. Eyes: Conjunctiva normal, no discharge. Satisfactory 6 cardinal eye movements. Neck: Normal range of motion, no stridor. No nuchal rigidity, no C-spine pain or pain to the muscular structures of the neck. Cardiovascular: No cyanosis appreciated, distal cap refill less than 2 seconds. Regular rate and rhythm, heart sounds S1-S2 to auscultation. Lungs & Thorax: Patient is in no respiratory distress, no audible adventitious lung sounds appreciated. Normal work of breathing, lung sounds clear to auscultation all lung kuo. Abdomen: Nontender, no abnormalities noted. No abnormal discoloration of the abdomen appreciated. Skin: Warm, dry, no erythema, no rash. See HEENT note for focused skin examination Back: No tenderness, no deformities. Extremities: No tenderness, no cyanosis, no clubbing, ROM intact, no edema. Except for bilateral lower extremity, there is +3 to +4 nonpitting edema. Neurologic: Alert and oriented X 3, normal motor function, normal sensory function, no focal deficits noted. Psychologic: Affect normal, judgement normal, mood normal. Current Patient Data: Labs: Laboratory Tests Test 03/11/22 15:35 Urine Collection Type U cath Urine Color (Auto) Light yellow Urine Turbidity Clear Urine pH (Auto) 5.5 (<5.0-8.0) Urine Specific [place] 1.014 (1.000-1.030) Urine Protein (Auto) Negative mg/dL (Negative) Urine Glucose (Auto)(UA) Negative mg/dL (Negative) Urine Ketones (Auto) Negative mg/dL (Negative) Urine Blood (Auto) Negative (Negative) Urine Nitrite Negative (Negative) Urine Bilirubin (Auto) Negative (Negative) Urine Urobilinogen (Auto) Normal mg/dL (Normal) Urine Leukocyte Esterase (Auto) Moderate (Negative) Urine RBC Occ /HPF (0-2) Urine WBC >40 /HPF (0-4) Urine Squamous Epithelial Cells Mod /LPF Urine Bacteria Many /HPF (0-FEW) Urine Hyaline Casts Many /HPF Urine Mucus Mod /LPF Vital Signs: Vital Signs Date Time Temp Pulse Resp B/P (MAP) Pulse Ox O2 Delivery O2 Flow Rate FiO2 03/11/22 13:56 98.2 95 16 134/66 (88) 98 Room Air 98.2 EKG: EKG: [] Radiology/Procedures: Radiology/Procedures: PROCEDURE: CT HEAD AND CERVICAL SPINE WO CT HEAD AND C-SPINE WO History: Reason: Ground-level fall, struck forehead / Spl. Instructions: / History: Comparison: None. Technique: Noncontrast CT imaging was performed of the head and cervical spine. Coronal and sagittal reconstructions were performed. Exposure: One or more of the following individualized dose reduction techniques were utilized for this examination: 1. Automated exposure control 2. Adjustment of the mA and/or kV according to patient size 3. Use of iterative reconstruction technique. Findings: Head CT: No intracranial hemorrhage. No mass effect. No hydrocephalus. Large left anterior scalp hematoma measures 4.6 x 1.2 cm. Mild foci of decreased attenuation within the hemispheric white matter, most often due to chronic microvascular ischemia. Partially sella, often incidental. Imaged orbits are unremarkable. Imaged paranasal sinuses and mastoid air cells are clear. No acute calvarial fracture. Cervical spine CT: Anterior stabilization and interbody fusion C3-C4. Normal vertebral body height. No acute fracture. Moderate degenerative disc changes most prominent C4-C5, C5-C6 and C6-C7. Moderate canal narrowing C2-C3. Additional mild canal narrowing. Multilevel neuroforaminal narrowing. Left posterior thyroid partially calcified nodule measures 1.5 x 1.2 cm. Impression: Head CT: 1. No acute intracranial abnormality. 2. Large left anterior scalp hematoma. Cervical spine CT: 1. No acute fracture or subluxation of the cervical spine. 2. Moderate cervical spondylosis with canal and neuroforaminal narrowing. MRI can further assess if clinically indicated. 3. Left thyroid nodule. Ultrasound can further evaluate if not already performed. Electronically signed by: Ky Nair DO (03/11/2022 3:08 PM) [id number] PROCEDURE: SHOULDER 2+V LEFT XR SHOULDER_LEFT 2+ VIEWS History: Reason: Ground-level fall, left shoulder pain / Spl. Instructions: / History: Technique: 3 views left shoulder Comparison: None. Findings: Moderate left acromioclavicular DJD. No dislocation. No acute fracture. Mild glenohumeral DJD. Impression: 1. No acute osseous abnormality. Electronically signed by: Ky Nair DO (03/11/2022 3:14 PM) [id number] Course & Med Decision Making: Course & Med Decision Making Pertinent Labs and Imaging studies reviewed. (See chart for details) 77-year-old female, vital signs reviewed, presents to the emergency department concerning a stumble and fall just prior to arrival to the emergency department in which patient struck her forehead. Physical examination is consistent with patient's explanation of events. The patient tetanus immunization is up-to-date, Tdap not indicated for today's visit. Will apply ice packs to contusions, bacitracin and wound care to abrasions, will order CT head and C- spine, x-ray of left shoulder, give p.o. Tylenol. Patient did complain of foul-smelling urine to ED nurse, upon evaluation of patient, patient reports she does not have increased urinary frequency, hematuria, pressure or dysuria, just notices malodorous urine over the past "s everal days". A urinalysis assay was obtained, the patient's urine is infected, will start on cefdinir 300 mg twice daily regimen. X-ray imaging of left shoulder, CT of head and C-spine were nonconcerning for acute bony fracture, did show contusion to forehead scalp. Discussed all findings with patient, continue ice packs 30 minutes on 30 minutes off to sore and swollen areas of the body, wound care for abrasions, application of bacitracin, strict follow-up with primary care this week for reevaluation, return to ER precautions or concerns were discussed, reviewed antibiotic regimen for urinary tract infection treatment with side effects of medication, patient gave verbal understanding of and is amenable to ED discharge planning. Discussed with the patient all findings and diagnostic testing as well as the need to follow-up with their primary care provider for further evaluation and treatment or return to the ED if any new or worsening symptoms. Strict return precautions were also discussed at length, the patient voiced understanding and agreement with the discharge planning. The patient was nontoxic in appearance, in no apparent distress, and hemodynamically stable at the time of disposition. Dragon Disclaimer: [employer] Disclaimer: This electronic medical record was generated, in whole or in part, using a voice recognition dictation system. Departure Departure Impression: Primary Impression: Fall at home Qualified Codes: W19.XXXA - Unspecified fall, initial encounter; Y92.009 - Unspecified place in unspecified non-institutional (private) residence as the place of occurrence of the external cause Additional Impressions: Scalp abrasion Qualified Codes: S00.01XA - Abrasion of scalp, initial encounter Facial abrasion Qualified Codes: S00.81XA - Abrasion of other part of head, initial encounter Scalp contusion Qualified Codes: S00.03XA - Contusion of scalp, initial encounter Contusion of left shoulder Qualified Codes: S40.012A - Contusion of left shoulder, initial encounter Urinary tract infection Qualified Codes: N39.0 - Urinary tract infection, site not specified Disposition: HOME / SELF CARE / HOMELESS Condition: GOOD Referrals: JOSE ARMANDO BURTON D.O. (PCP) Patient Instructions: Abrasions, Contusion, Fall Prevention and Home Safety, Urinary Tract Infection Additional Instructions: You were seen today in the emergency department after a stumble and fall at home. A CT scan of your head and neck did not reveal any concerning findings of brain injury or bony injury. However you do have a large contusion with sw elling over your forehead area with an abrasion of the skin. Please continue to apply ice packs 30 minutes on and 30 minutes off while awake for the next 48 to 72 hours to help with swelling and discomfort. Please apply antibiotic ointment after daily cleansing of your facial abrasions. You may use [id number] Tylenol or Motrin for any aches and pains. A urinalysis was obtained today as you had complained of malodorous urine. This does show a urinary tract infection in which your first antibiotic was started today in the emergency department, you will take this medicine twice a day for the 7 days. Please take as directed until complete. Please follow-up with your primary care provider this coming week for any returning or ongoing symptoms. Thank you for visiting our Emergency Department. It was a pleasure taking care of you today in the emergency department and we appreciate you trusting us with your care. If any additional problems come up don't hesitate to return to visit us. Please follow up with your primary care provider so they can plan additional care if needed and know about the problem that you had. If symptoms worsen come back to the Emergency Department. Any concerning symptoms that start such as chest pain, shortness of air, weakness or numbness on one side of the body, running high fevers or any other concerning symptoms return to the ER. Scripts Cefdinir (CEFDINIR) 300 Mg Capsule 1 CAP PO BID for UTI, #14 CAP 0 Refills Prov: SUMAYA JOSHUA APRN 03/11/22 SUMAYA JOSHUA APRN March 11, 2022 17:06
[2022-03-11] MEDS ORDERED: CEFDINIR 300 MG CAPSULE PO STA (17:07)
[2022-03-11] MEDS ORDERED: CEFD300C PO (17:16)
== END 2022-03-11 17:50 | disposition home or self-care (01) ==
LOC: ER 13:42
DX: S00.03XA Contusion of scalp, initial encounter (principal); S40.012A Contusion of left shoulder, initial encounter; S00.81XA Abrasion of other part of head, initial encounter; N39.0 Urinary tract infection, site not specified; I10 Essential (primary) hypertension; W18.39XA Other fall on same level, initial encounter; Y93.89 Activity, other specified; Y92.098 Other place in other non-institutional residence as the place of occurrence of the external cause; Y99.8 Other external cause status
CPT/HCPCS: 70450; 72125; 73030; 81001; 87077; 87086; 87186; 99285-25